=== PATIENT | female | born 1935 | race Caucasian/White ===

== ENCOUNTER 2023-06-30 19:00 | Emergency (ER) | payer OTHER ==
[~2023-06-30] VITALS: Ht 162.6 cm; Wt 68.9 kg
[2023-06-30 19:24] VITALS: BP_SYST 172; PULSE 70; RESP 17; TEMP 98; O2SAT 97
[2023-07-01] MEDS ORDERED: DIPHTH,PERTUSS(ACELL),TET VAC 0.5 ML VIAL (Tdap) I.M. ONE (01:30)
[2023-07-01 03:31] VITALS: BP_SYST 172; PULSE 70; RESP 17; TEMP 98; O2SAT 97
== END 2023-07-01 05:44 | disposition home or self-care (01) ==
LOC: SED 19:00
DX: S51.011A Laceration without foreign body of right elbow, initial encounter (principal); E11.9 Type 2 diabetes mellitus without complications; Z88.0 Allergy status to penicillin; Z79.899 Other long term (current) drug therapy; W01.198A Fall on same level from slipping, tripping and stumbling with subsequent striking against other object, initial encounter; Y93.89 Activity, other specified; Y92.89 Other specified places as the place of occurrence of the external cause; Y99.8 Other external cause status
CPT/HCPCS: 90715; 99283

== ENCOUNTER 2024-05-17 09:56 | Emergency (ER) | payer OTHER ==
[~2024-05-17] VITALS: Ht 175.3 cm; Wt 70.8 kg
[2024-05-17 10:17] VITALS: RESP 20; TEMP 98.3
[2024-05-17 11:12] LABS: BASOPHILS % (AUTO) 0.3 % (0.0-2.0); EOSINOPHILS # (AUTO) 0.2 K/uL (0.0-0.4); EOSINOPHILS % (AUTO) 1.7 % (0.0-4.0); HEMATOCRIT 33.5 % (36-48); LYMPHOCYTES # (AUTO) 2.6 K/uL (1.0-5.5); LYMPHOCYTES % (AUTO) 29.6 % (20.5-51.5); MEAN CORPUSCULAR HEMOGLOBIN 31 pg (27-31); MEAN CORPUSCULAR HGB CONC 33 % (32-36); MEAN CORPUSCULAR VOLUME 95 fL (79.0-98.0); MONOCYTES # (AUTO) 0.7 K/uL (0.0-1.0); MONOCYTES % (AUTO) 7.8 % (1.7-9.3); NEUTROPHILS # (AUTO) 5.3 K/uL (1.8-7.7); NEUTROPHILS % (AUTO) 60.6 % (40.0-70.0); PLATELET COUNT (AUTO) 228 K/uL (130-430); RED BLOOD CELL COUNT(AUTO) 3.54 MIL/uL (4.2-6.2); RED CELL DISTRIBUTION WIDTH 14.7 % (9.0-15.0); WHITE BLOOD COUNT (AUTO) 8.8 K/uL (4.8-10.8)
[2024-05-17 11:26] LABS: INR 0.9 (0.8-1.2); PROTHROMBIN TIME 9.5 SECS (9.5-12.5)
[2024-05-17 11:30] LABS: ALANINE AMINOTRANSFERASE 23 U/L (12-78); ALBUMIN 3.7 g/dL (3.4-4.8); ANION GAP 11 (5-15); ASPARTATE AMINOTRANSFERASE 26 U/L (10-37); BILIRUBIN,DIRECT 0.2 mg/dL (0.0-0.3); CALCIUM 9.4 mg/dL (8.4-11.0); CARBON DIOXIDE 25 mmol/L (23-29); CHLORIDE 103 mmol/L (98-107); CREATINE KINASE, TOTAL 78 U/L (26-192); CREATININE 1.43 mg/dL (0.55-1.30); GLUCOSE 91 mg/dL (74-106); POTASSIUM 4.5 mmol/L (3.5-5.1); SODIUM SERUM 139 mmol/L (136-145); TOTAL BILIRUBIN 0.6 mg/dL (0.0-1.0); TOTAL PROTEIN, SERUM 7.2 g/dL (6.4-8.3); UREA NITROGEN, BLOOD 29 mg/dL (8-21)
[2024-05-17] MEDS ORDERED: IBUP-1969 PO (12:14)
[2024-05-17] MEDS ORDERED: HYDR-3927 PO (12:14)
[2024-05-17 12:59] VITALS: BP_SYST 158; PULSE 81; RESP 20; TEMP 98.3; O2SAT 95
== END 2024-05-17 12:34 | disposition home or self-care (01) ==
LOC: SED 09:56
DX: S02.31XA Fracture of orbital floor, right side, initial encounter for closed fracture (principal); M25.561 Pain in right knee; E11.9 Type 2 diabetes mellitus without complications; Z88.0 Allergy status to penicillin; W18.39XA Other fall on same level, initial encounter; Y93.89 Activity, other specified; Y92.89 Other specified places as the place of occurrence of the external cause; Y99.8 Other external cause status
CPT/HCPCS: 36415; 70450-TC; 73564; 80048; 80076; 82550; 85025; 85610; 85730; 99284